=== PATIENT | female | born 1995 ===

== ENCOUNTER 2019-01-05 06:22 | Inpatient (IN) | payer OTHER ==
[2019-01-05] MEDS ORDERED: Sodium Chloride 0.9% 1,000 ML IV ONE (07:03)
[2019-01-05] MEDS ORDERED: Ciprofloxacin 400mg/200ml D5W 400 MG/200 ML BAG IVPB STA (07:10)
[2019-01-05 07:31] LABS: VENOUS BLOOD GAS BASE EXCESS -0.4 mmol/L (0.0-2.0); VENOUS BLOOD GAS PCO2 33 mmHg (40-60); VENOUS BLOOD GAS PO2 49 mm/Hg (30-55); VENOUS BLOOD PH 7.45 (7.32-7.43)
[2019-01-05 07:50] LABS: BASO # 0.1 K/uL (0.0-0.2); BASO % 0.3 % (0.0-2.0); EOS % 0.1 % (0.0-4.0); HEMOGLOBIN 11.6 g/dL (11.0-16.0); LYMPH # 0.5 K/uL (1.0-4.3); LYMPH % 2.5 % (20.0-40.0); MEAN CELL VOLUME 87.4 fL (81.0-99.0); MEAN CORPUSCULAR HEMOGLOBIN 30.3 pg (27.0-31.0); MEAN CORPUSCULAR HGB CONC 34.7 g/dL (33.0-37.0); MEAN PLATELET VOLUME 9.7 fL (7.2-11.7); MONO # 1.3 K/uL (0.0-0.8); MONO % 6.6 % (0.0-10.0); NEUT # 18.5 K/uL (1.8-7.0); NEUT % 90.5 % (50.0-75.0); PLATELET COUNT 148 K/uL (130-400); RBC 3.84 Mil/uL (3.80-5.20); RED CELL DISTRIBUTION WIDTH 13.2 % (11.5-14.5); WHITE BLOOD COUNT 20.4 K/uL (4.8-10.8)
[2019-01-05 07:57] LABS: HCG,QUALITATIVE URINE NEGATIVE (NEGATIVE)
[2019-01-05 08:00] LABS: SQUAMOUS EPITHIAL 13 /hpf (0-5); URINE BACTERIA OCC (<OCC); URINE BILIRUBIN NEGATIVE (NEGATIVE); URINE BLOOD 1+ (NEGATIVE); URINE CLARITY Hazy (Clear); URINE COLOR Yellow (YELLOW); URINE GLUCOSE (UA) 1+ mg/dL (Normal); URINE LEUKOCYTE ESTERASE 3+ Leu/uL (Negative); URINE PROTEIN 2+ mg/dL (NEGATIVE); URINE UROBILINOGEN NORMAL mg/dL (0.2-1.0); WBC CLUMPS FEW /hpf
[2019-01-05 08:04] LABS: ALB/GLOB RATIO 1.3 (1.0-2.1); ALBUMIN 3.9 g/dL (3.5-5.0); ALT/SGPT 56 U/L (9-52); AST/SGOT 39 U/L (14-36); BLOOD UREA NITROGEN 8 mg/dL (7-17); CALCIUM 8.5 mg/dl (8.6-10.4); GFR NON-AFRICAN AMERICAN > 60
[2019-01-05] MEDS ORDERED: Ciprofloxacin 400mg/200ml D5W 400 MG/200 ML BAG IVPB ONE (08:25)
[2019-01-05 08:45] LABS: BANDS 2 % (0-2); LYMPHOCYTE 1 % (20-40); MONOCYTE 3 % (0-10); NEUTROPHIL 94 % (50-75); PLATELET ESTIMATE NORMAL (NORMAL); TOTAL CELLS COUNTED 100
--- NOTE | 2019-01-05 09:07 | C.PDOC ---
History Of Present Illness 23 y/o female,with no significant PMhx, presents to the ER complaining of fever,right flank pain, and dysuria which have been present for the past 2 days. Patient states that the right flank pain radiates to the pelvic area. Patient reports that she took Tylenol at home. However, patient has Tmax 102.6 in ER. Denies having headache,dizziness,CP,SOB, nausea, and vomiting. Time Seen by Provider: 01/05/19 07:02 Chief Complaint (Nursing): Fever History Per: Patient History/Exam Limitations: no limitations Onset/Duration Of Symptoms: Days Current Symptoms Are (Timing): Still Present Severity: Moderate Past Medical History Reviewed: Historical Data, Nursing Documentation, Vital Signs Vital Signs: Last Vital Signs Temp 99.9 F H 01/05/19 08:18 Pulse 105 H 01/05/19 08:18 Resp 22 01/05/19 08:18 BP 100/61 01/05/19 08:18 Pulse Ox 97 01/05/19 08:18 Primary Care Provider: FAMILY PROVIDER,NO - Medical History PMH: No Chronic Diseases Surgical History: No Surg Hx Family History: States: No Known Family Hx - Social History Hx Alcohol Use: No Hx Substance Use: No - Immunization History Hx Tetanus Toxoid Vaccination: No Hx Influenza Vaccination: No Hx Pneumococcal Vaccination: No Review Of Systems Except As Marked, All Systems Reviewed And Found Negative. Constitutional: Positive for: Fever, Chills Gastrointestinal: Negative for: Nausea, Vomiting Genitourinary: Positive for: Dysuria. Negative for: Hematuria Musculoskeletal: Positive for: Back Pain Neurological: Negative for: Headache Physical Exam - Physical Exam Appears: Non-toxic, Other (ill) Skin: Normal Color, Warm, Dry Head: Atraumatic, Normacephalic Eye(s): bilateral: Normal Inspection Ear(s): Bilateral: Normal Nose: Normal Oral Mucosa: Moist Throat: Normal, No Erythema, No Exudate Neck: Supple Chest: Symmetrical Cardiovascular: Rhythm Regular Respiratory: Normal Breath Sounds, No Rales, No Rhonchi, No Wheezing Gastrointestinal/Abdominal: Soft, Tenderness (lower abdominal tenderness), No Guarding, No Rebound Back: CVA Tenderness (right sided CVA tenderness) Neurological/Psych: Oriented x3, Normal Speech ED Course And Treatment - Laboratory Results Result Diagrams: 01/08/19 07:15 01/08/19 07:15 Lab Results: pO2 49 mm/Hg (30-55) 01/05/19 07:25 VBG pH 7.45 (7.32-7.43) H 01/05/19 07:25 VBG pCO2 33 mmHg (40-60) L 01/05/19 07:25 VBG HCO3 24.3 mmol/L 01/05/19 07:25 VBG Total CO2 23.9 mmol/L (22-28) 01/05/19 07:25 VBG O2 Sat (Calc) 89.3 % (40-65) H 01/05/19 07:25 VBG Base Excess -0.4 mmol/L (0.0-2.0) L 01/05/19 07:25 VBG Potassium 2.8 mmol/L (3.6-5.2) L 01/05/19 07:25 Sodium 135.0 mmol/l (132-148) 01/05/19 07:25 Chloride 102.0 mmol/L (98-107) 01/05/19 07:25 Glucose 106 mg/dl (65-105) H 01/05/19 07:25 Lactate 1.1 mmol/L (0.7-2.1) 01/05/19 07:25 Total Bilirubin 1.2 mg/dL (0.2-1.3) 01/05/19 07:46 AST 39 U/L (14-36) H 01/05/19 07:46 ALT 56 U/L (9-52) H 01/05/19 07:46 Alkaline Phosphatase 98 U/L (38-126) 01/05/19 07:46 Total Protein 6.9 g/dL (6.3-8.3) 01/05/19 07:46 Albumin 3.9 g/dL (3.5-5.0) 01/05/19 07:46 Globulin 3.0 gm/dL (2.2-3.9) 01/05/19 07:46 Albumin/Globulin Ratio 1.3 (1.0-2.1) 01/05/19 07:46 Urine Color Yellow (YELLOW) 01/05/19 07:46 Urine Clarity Hazy (Clear) 01/05/19 07:46 Urine pH 5.0 (5.0-8.0) 01/05/19 07:46 Ur Specific [place] 1.020 (1.003-1.030) 01/05/19 07:46 Urine Protein 2+ mg/dL (NEGATIVE) H 01/05/19 07:46 Urine Glucose (UA) 1+ mg/dL (Normal) 01/05/19 07:46 Urine Ketones 1+ mg/dL (NEGATIVE) H 01/05/19 07:46 Urine Blood 1+ (NEGATIVE) H 01/05/19 07:46 Urine Nitrate Negative (NEGATIVE) 01/05/19 07:46 Urine Bilirubin Negative (NEGATIVE) 01/05/19 07:46 Urine Urobilinogen Normal mg/dL (0.2-1.0) 01/05/19 07:46 Ur Leukocyte Esterase 3+ [place]/uL (Negative) H 01/05/19 07:46 Urine WBC (Auto) 117 /hpf (0-5) H 01/05/19 07:46 Urine RBC (Auto) 9 /hpf (0-3) H 01/05/19 07:46 Urine WBC Clumps (Auto) Few /hpf (NONE) H 01/05/19 07:46 Ur Squamous Epith Cells 13 /hpf (0-5) H 01/05/19 07:46 Urine Bacteria Occ (<OCC) H 01/05/19 07:46 Urine HCG, Qual Negative (NEGATIVE) 01/05/19 07:46 Urine HCG, Qual Negative (NEGATIVE) 01/05/19 07:46 O2 Sat by Pulse Oximetry: 97 (RA) Pulse Ox Interpretation: Normal Medical Decision Making Medical Decision Making: Plan: --Labs --UA --IV Fluids --Cipro IV --Motrin PO --Rocephin IV --Tylenol PO Updates: Pt is febrile, mildly tachycardic and hypotensive. Pt meets SIRS criteria for possible sepsis. Lactate is 1.1. Remaining labs pending. Disposition Discussed With Dr.: Ger Mathis Counseled Patient/Family Regarding: Studies Performed, Diagnosis - Disposition Disposition: HOSPITALIZED Disposition Time: 12:50 Condition: GOOD - Clinical Impression Clinical Impression: Fever, Pyelonephritis - Scribe Statement The provider has reviewed the documentation as recorded by the Lucioibe Marleni Brewer Provider Attestation: All medical record entries made by the Scribe were at my direction and personally dictated by me. I have reviewed the chart and agree that the record accurately reflects my personal performance of the history, physical exam, medical decision making, and the department course for this patient. I have also personally directed, reviewed, and agree with the discharge instructions and disposition. Decision To Admit - Pt Status Changed To: Hospital Disposition Of: Inpatient - Admit Certification Admit to Inpatient:: After my assessment, the patient will require hospitalization for at least two midnights. This is because of the severity of symptoms shown, intensity of services needed, and/or the medical risk in this patient being treated as an outpatient. - InPatient: Physician Admission Certification:: pyelonephritis, early signs of sepsis - . Bed Request Type: Regular Patient Diagnosis: Fever, Pyelonephritis
[2019-01-05 10:08] LABS: VENOUS BLOOD GAS BASE EXCESS -3.9 mmol/L (0.0-2.0); VENOUS BLOOD GAS PCO2 36 mmHg (40-60); VENOUS BLOOD GAS PO2 39 mm/Hg (30-55); VENOUS BLOOD PH 7.37 (7.32-7.43)
[2019-01-05] MEDS ORDERED: Potassium Chloride 20 mEq ER Tab PO STA (10:23)
[2019-01-05] MEDS ORDERED: Potassium Chloride 20 mEq ER Tab PO ONE ×2 (10:33→13:45)
--- NOTE | 2019-01-05 12:19 | CT ---
Date of service: 01/05/2019 PROCEDURE: CT Abdomen and Pelvis without intravenous contrast HISTORY: pyelo vs obstructed stone COMPARISON: Not available TECHNIQUE: Without contrast.. Contrast dose: 0 Radiation dose: Total exam DLP = 366.81 mGy-cm. This CT exam was performed using one or more of the following dose reduction techniques: Automated exposure control, adjustment of the mA and/or kV according to patient size, and/or use of iterative reconstruction technique. FINDINGS: LOWER THORAX: Bilateral minimal lower lobe linear scar/atelectasis. LIVER: Unremarkable. No gross lesion or ductal dilatation. GALLBLADDER AND BILE DUCTS: Unremarkable. PANCREAS: Unremarkable. No gross lesion or ductal dilatation. SPLEEN: Unremarkable. ADRENALS: Unremarkable. No mass. KIDNEYS AND URETERS: Minimal right hydronephrosis with effacement of renal sinus fat. Mild right hydroureter. No renal mass or calculus. No perinephric fluid. Mild right periureteric stranding. No ureteral calculus. These findings may be the result of recent passage of a ureteral calculus but this cannot be determined with certainty on the basis of this examination. Unremarkable left kidney. Cannot evaluate for pyelonephritis in the absence of intravenous contrast administration. VASCULATURE: Unremarkable. No aortic aneurysm. No aortic atherosclerotic calcification or mural plaque present. BOWEL: Unremarkable. No obstruction. No gross mural thickening. APPENDIX: Not identified. No secondary findings to suggest acute appendicitis. PERITONEUM: Unremarkable. No free fluid. No free air. LYMPH NODES: Unremarkable. No enlarged lymph nodes. BLADDER: Unremarkable. REPRODUCTIVE: Unremarkable uterus. BONES: No acute fracture. OTHER FINDINGS: None. IMPRESSION: Mild right hydronephrosis and hydroureter without evidence of obstructing calculus. Possible recent passage of a urinary calculus. Unable to evaluate for pyelonephritis in the absence of intravenous contrast administration. No other significant abnormality is identified.
--- NOTE | 2019-01-05 13:02 | CP.PCM.HP ---
<Rama Jean Baptiste - Last Filed: 01/05/19 14:29> History of Present Illness - History of Present Illness History of Present Illness: 23 year old female with no past medical history presents to the ER for fever and right sided back pain. She states her symptoms started on Thursday evening when she got home from work. She states she took Tylenol which would help and then the fever would return. She stated she had a lot of pain today and vomited x2. She has never had any of these symptoms before. She also complains of pelvic pain after she has completed urinating. Patient denies chills, diarrhea, dysuria, hematuria, headache, shortness of breath or chest pain. PMD:denies Past Medical History: denies Past Surgical History: denies Family History: denies Medications: denies Allergies: NKDA Social History: works as a automotive service cashier, denies alcohol, smoking or illicit drug use Present on Admission - Present on Admission Any Indicators Present on Admission: No Review of Systems - Constitutional Constitutional: Fever. absent: Chills, Headache - Cardiovascular Cardiovascular: absent: Chest Pain, Dyspnea - Respiratory Respiratory: absent: Cough, Dyspnea - Gastrointestinal Gastrointestinal: Nausea, Vomiting. absent: Constipation, Diarrhea - Genitourinary Genitourinary: Flank Pain. absent: Dysuria, Hematuria, Urinary Frequency - Musculoskeletal Musculoskeletal: Back Pain - Neurological Neurological: absent: Dizziness, Headaches Past Patient History - Past Social History Smoking Status: Never Smoked - PSYCHIATRIC Hx Substance Use: No - ANESTHESIA Hx Anesthesia: No Meds Allergies/Adverse Reactions: Allergies Allergy/AdvReac Type Severity Reaction Status Date / Time No Known Allergies Allergy Verified 01/05/19 06:38 Physical Exam - Constitutional Appears: No Acute Distress - Head Exam Head Exam: ATRAUMATIC, NORMAL INSPECTION - Eye Exam Eye Exam: EOMI, Normal appearance, PERRL Pupil Exam: NORMAL ACCOMODATION - ENT Exam ENT Exam: Mucous Membranes Dry - Respiratory Exam Respiratory Exam: Clear to Auscultation Bilateral, NORMAL BREATHING PATTERN - Cardiovascular Exam Cardiovascular Exam: REGULAR RHYTHM, +S1, +S2 - GI/Abdominal Exam GI & Abdominal Exam: Normal Bowel Sounds, Soft. absent: Tenderness - Back Exam Back exam: CVA tenderness (R). absent: CVA tenderness (L) - Neurological Exam Neurological exam: Alert, Oriented x3 - Psychiatric Exam Psychiatric exam: Normal Affect - Skin Skin Exam: Dry, Normal Color Results - Vital Signs Recent Vital Signs: Last Vital Signs Temp 98.6 F 01/05/19 11:47 Pulse 92 H 01/05/19 11:47 Resp 18 01/05/19 11:47 BP 96/63 L 01/05/19 11:47 Pulse Ox 97 01/05/19 12:51 - Labs Result Diagrams: 01/05/19 07:46 01/05/19 07:46 Labs: Laboratory Results - last 24 hr 01/05/19 01/05/19 01/05/19 07:25 07:46 07:46 WBC 20.4 H RBC 3.84 Hgb 11.6 Hct 33.5 L MCV 87.4 MCH 30.3 MCHC 34.7 RDW 13.2 Plt Count 148 MPV 9.7 Neut % (Auto) 90.5 H Lymph % (Auto) 2.5 L [place] % (Auto) 6.6 Eos % (Auto) 0.1 Baso % (Auto) 0.3 Neut # (Auto) 18.5 H Lymph # (Auto) 0.5 L [place] # (Auto) 1.3 H Eos # (Auto) 0.0 Baso # (Auto) 0.1 Neutrophils % (Manual) 94 H Band Neutrophils % 2 Lymphocytes % (Manual) 1 L Monocytes % (Manual) 3 Platelet Estimate Normal RBC Morphology Normal pO2 49 VBG pH 7.45 H VBG pCO2 33 L VBG HCO3 24.3 VBG Total CO2 23.9 VBG O2 Sat (Calc) 89.3 H VBG Base Excess -0.4 L VBG Potassium 2.8 L Sodium 135.0 Chloride 102.0 Glucose 106 H Lactate 1.1 Potassium Carbon Dioxide Anion Gap BUN Creatinine Est GFR ( Amer) Est GFR (Non-Af Amer) Random Glucose Calcium Total Bilirubin AST ALT Alkaline Phosphatase Total Protein Albumin Globulin Albumin/Globulin Ratio Venous Blood Potassium 2.8 L Urine Color Yellow Urine Clarity Hazy Urine pH 5.0 Ur Specific [place] 1.020 Urine Protein 2+ H Urine Glucose (UA) 1+ Urine Ketones 1+ H Urine Blood 1+ H Urine Nitrate Negative Urine Bilirubin Negative Urine Urobilinogen Normal Ur Leukocyte Esterase 3+ H Urine WBC (Auto) 117 H Urine RBC (Auto) 9 H Urine WBC Clumps (Auto) Few H Ur Squamous Epith Cells 13 H Urine Bacteria Occ H Urine HCG, Qual Negative 01/05/19 01/05/19 07:46 09:59 WBC RBC Hgb Hct MCV MCH MCHC RDW Plt Count MPV Neut % (Auto) Lymph % (Auto) [place] % (Auto) Eos % (Auto) Baso % (Auto) Neut # (Auto) Lymph # (Auto) [place] # (Auto) Eos # (Auto) Baso # (Auto) Neutrophils % (Manual) Band Neutrophils % Lymphocytes % (Manual) Monocytes % (Manual) Platelet Estimate RBC Morphology pO2 39 VBG pH 7.37 VBG pCO2 36 L VBG HCO3 21.2 VBG Total CO2 21.9 L VBG O2 Sat (Calc) 81.8 H VBG Base Excess -3.9 L VBG Potassium 2.6 L Sodium 135 134.0 Chloride 100 105.0 Glucose 348 H Lactate 1.2 Potassium 2.9 L Carbon Dioxide 23 Anion Gap 15 BUN 8 Creatinine 0.5 L Est GFR ( Amer) > 60 Est GFR (Non-Af Amer) > 60 Random Glucose 107 H Calcium 8.5 L Total Bilirubin 1.2 AST 39 H ALT 56 H Alkaline Phosphatase 98 Total Protein 6.9 Albumin 3.9 Globulin 3.0 Albumin/Globulin Ratio 1.3 Venous Blood Potassium 2.6 L Urine Color Urine Clarity Urine pH Ur Specific [place] Urine Protein Urine Glucose (UA) Urine Ketones Urine Blood Urine Nitrate Urine Bilirubin Urine Urobilinogen Ur Leukocyte Esterase Urine WBC (Auto) Urine RBC (Auto) Urine WBC Clumps (Auto) Ur Squamous Epith Cells Urine Bacteria Urine HCG, Qual Assessment & Plan - Assessment and Plan (Free Text) Assessment: Pyelonephritis - SIRS: Febrile; WBC 20.4; tachycardia on admission - UA: + WBC; + leukocyte esterase - Urine test Negative - f/u urine culture; f/u blood culture - Abdominal/Pelvis CT: Mild right hydronephrosis and hydroureter without evidence of obstructing calculus. Possible recent passage of a urinary calculus. Unable to evaluate for pyelonephritis in the absence of intravenous contrast administration. No other significant abnormality is identified. - Medications * Tylenol 650mg q6prn for Fever * Zofran 4mg IV prn for nausea * Vancomycin 1gm q12h * Primaxin 500mg q6h Hypokalemia - K 2.9 - Kdur 60meq once - f/u bmp - Continue to monitor Prophylaxis - SCDs; patient ambulates - GI: prophylaxis not indicated - Florastor 250mg po daily Case discussed with Dr. Delfina Jean Baptiste PGY-2 <Ger Mathis - Last Filed: 01/05/19 17:43> Results - Vital Signs Recent Vital Signs: Last Vital Signs Temp 101.1 F H 01/05/19 16:46 Pulse 114 H 01/05/19 15:13 Resp 20 01/05/19 15:50 BP 102/68 01/05/19 15:13 Pulse Ox 98 01/05/19 15:13 - Labs Result Diagrams: 01/05/19 07:46 01/05/19 17:03 Labs: Laboratory Results - last 24 hr 01/05/19 01/05/19 01/05/19 07:25 07:46 07:46 WBC 20.4 H RBC 3.84 Hgb 11.6 Hct 33.5 L MCV 87.4 MCH 30.3 MCHC 34.7 RDW 13.2 Plt Count 148 MPV 9.7 Neut % (Auto) 90.5 H Lymph % (Auto) 2.5 L [place] % (Auto) 6.6 Eos % (Auto) 0.1 Baso % (Auto) 0.3 Neut # (Auto) 18.5 H Lymph # (Auto) 0.5 L [place] # (Auto) 1.3 H Eos # (Auto) 0.0 Baso # (Auto) 0.1 Neutrophils % (Manual) 94 H Band Neutrophils % 2 Lymphocytes % (Manual) 1 L Monocytes % (Manual) 3 Platelet Estimate Normal RBC Morphology Normal pO2 49 VBG pH 7.45 H VBG pCO2 33 L VBG HCO3 24.3 VBG Total CO2 23.9 VBG O2 Sat (Calc) 89.3 H VBG Base Excess -0.4 L VBG Potassium 2.8 L Sodium 135.0 Chloride 102.0 Glucose 106 H Lactate 1.1 Potassium Carbon Dioxide Anion Gap BUN Creatinine Est GFR ( Amer) Est GFR (Non-Af Amer) Random Glucose Calcium Total Bilirubin AST ALT Alkaline Phosphatase Total Protein Albumin Globulin Albumin/Globulin Ratio Venous Blood Potassium 2.8 L Urine Color Yellow Urine Clarity Hazy Urine pH 5.0 Ur Specific [place] 1.020 Urine Protein 2+ H Urine Glucose (UA) 1+ Urine Ketones 1+ H Urine Blood 1+ H Urine Nitrate Negative Urine Bilirubin Negative Urine Urobilinogen Normal Ur Leukocyte Esterase 3+ H Urine WBC (Auto) 117 H Urine RBC (Auto) 9 H Urine WBC Clumps (Auto) Few H Ur Squamous Epith Cells 13 H Urine Bacteria Occ H Urine HCG, Qual Negative 01/05/19 01/05/19 01/05/19 07:46 09:59 17:03 WBC RBC Hgb Hct MCV MCH MCHC RDW Plt Count MPV Neut % (Auto) Lymph % (Auto) [place] % (Auto) Eos % (Auto) Baso % (Auto) Neut # (Auto) Lymph # (Auto) [place] # (Auto) Eos # (Auto) Baso # (Auto) Neutrophils % (Manual) Band Neutrophils % Lymphocytes % (Manual) Monocytes % (Manual) Platelet Estimate RBC Morphology pO2 39 VBG pH 7.37 VBG pCO2 36 L VBG HCO3 21.2 VBG Total CO2 21.9 L VBG O2 Sat (Calc) 81.8 H VBG Base Excess -3.9 L VBG Potassium 2.6 L Sodium 135 134.0 136 Chloride 100 105.0 103 Glucose 348 H Lactate 1.2 Potassium 2.9 L 3.4 L Carbon Dioxide 23 25 Anion Gap 15 12 BUN 8 6 L Creatinine 0.5 L 0.5 L Est GFR ( Amer) > 60 > 60 Est GFR (Non-Af Amer) > 60 > 60 Random Glucose 107 H 118 H Calcium 8.5 L 8.5 L Total Bilirubin 1.2 AST 39 H ALT 56 H Alkaline Phosphatase 98 Total Protein 6.9 Albumin 3.9 Globulin 3.0 Albumin/Globulin Ratio 1.3 Venous Blood Potassium 2.6 L Urine Color Urine Clarity Urine pH Ur Specific [place] Urine Protein Urine Glucose (UA) Urine Ketones Urine Blood Urine Nitrate Urine Bilirubin Urine Urobilinogen Ur Leukocyte Esterase Urine WBC (Auto) Urine RBC (Auto) Urine WBC Clumps (Auto) Ur Squamous Epith Cells Urine Bacteria Urine HCG, Qual Attending/Attestation - Attestation I have personally seen and examined this patient.: Yes I have fully participated in the care of the patient.: Yes I have reviewed all pertinent clinical information: Yes Notes (Text): 01/05/19 17:40 Medical attending: Patient was seen and examined by me, agree with the above note by the resident The patient has been having fevers, flank pain, and also dysuria. The UA was suggesting infection as well. CT scan was done without contrast but suggested stranding. Replace the K as well Ger Mathis
[2019-01-05] MEDS: Sodium Chloride 0.9% 1,000 ML IV SCH ×2 (14:42→21:44)
[2019-01-05] MEDS: Vancomycin 1 gm/NS 200 ml 1 GM/200 ML BAG IVPB SCH (16:47)
[2019-01-05 17:35] LABS: BLOOD UREA NITROGEN 6 mg/dL (7-17); CALCIUM 8.5 mg/dl (8.6-10.4); GFR NON-AFRICAN AMERICAN > 60
[2019-01-05] MEDS ORDERED: Pneumococcal 23-Valent Vaccine IM ONE (18:38)
[2019-01-06] MEDS: Sodium Chloride 0.9% 1,000 ML IV SCH ×3 (03:20→17:09)
[2019-01-06] MEDS: Vancomycin 1 gm/NS 200 ml 1 GM/200 ML BAG IVPB SCH ×2 (04:00→16:08)
--- NOTE | 2019-01-06 07:16 | CP.PCM.PN ---
<Willem Bustillo L - Last Filed: 01/06/19 16:33> Subjective - Date & Time of Evaluation Date of Evaluation: 01/06/19 Time of Evaluation: 07:14 - Subjective Subjective: Resident Progress Note for Hospitalist Service Patient examined at bedside. Patient reports improvement in her flank pain. Had Tmax overnight of 103. Denies chest pain, shortness of breath, abdominal pain, diarrhea, dysuria. Objective - Vital Signs/Intake and Output Vital Signs (last 24 hours): Temp Pulse Resp BP Pulse Ox 98.4 F 95 H 20 93/60 L 96 01/06/19 04:00 01/06/19 04:00 01/06/19 04:00 01/06/19 04:00 01/06/19 04:00 - Medications Medications: Current Medications Acetaminophen (Tylenol 325mg Tab) 650 mg PO Q6 PRN PRN Reason: Fever >100.4 F Last Admin: 01/06/19 00:59 Dose: 650 mg Imipenem/Cilastatin Sodium 500 (mg/ Sodium Chloride) 100 mls @ 100 mls/hr IVPB Q6H [facility]; Protocol Last Admin: 01/06/19 01:50 Dose: 100 mls/hr Sodium Chloride (Sodium Chloride 0.9%) 1,000 mls @ 150 mls/hr IV .Q6H40M [facility] Last Admin: 01/06/19 03:20 Dose: Not Given Vancomycin/Sodium Chloride (Vancomycin 1 Gm/Ns 200 Ml) 1 gm in 200 mls @ 133 mls/hr IVPB Q12H [facility]; Protocol Stop: 01/10/19 16:01 Last Admin: 01/06/19 04:00 Dose: 133 mls/hr Ondansetron HCl (Zofran Inj) 4 mg IVP Q6 PRN PRN Reason: Nausea/Vomiting Saccharomyces Boulardii (Florastor) 250 mg PO DAILY [facility] - Labs Labs: 01/05/19 07:46 01/05/19 17:03 - Constitutional Appears: No Acute Distress - Head Exam Head Exam: ATRAUMATIC, NORMAL INSPECTION - Eye Exam Eye Exam: EOMI, Normal appearance, PERRL - ENT Exam ENT Exam: Mucous Membranes Dry - Respiratory Exam Respiratory Exam: Clear to Auscultation Bilateral, NORMAL BREATHING PATTERN - Cardiovascular Exam Cardiovascular Exam: REGULAR RHYTHM, +S1, +S2 - GI/Abdominal Exam GI & Abdominal Exam: Normal Bowel Sounds, Soft. absent: Tenderness - Back Exam Back exam: absent: CVA tenderness (L), CVA tenderness (R) - Neurological Exam Neurological exam: Alert, Awake, Oriented x3 - Psychiatric Exam Psychiatric exam: Normal Affect - Skin Skin Exam: Dry, Normal Color Assessment and Plan - Assessment and Plan (Free Text) Plan: Pyelonephritis - SIRS: Febrile; WBC 20.4; tachycardia on admission - leukocytosis trending down - procal elevated - UA: + WBC; + leukocyte esterase - Urine test negative - blood culture and urine culture gram negative denys preliminary - Abdominal/Pelvis CT: Mild right hydronephrosis and hydroureter without evidence of obstructing calculus. Possible recent passage of a urinary calculus. Unable to evaluate for pyelonephritis in the absence of intravenous contrast administration. No other significant abnormality is identified. - Medications * Tylenol 650mg q6 for Fever * Zofran 4mg IV prn for nausea * Vancomycin 1gm q12h * Primaxin 500mg q6h Hypokalemia - monitor and replete Prophylaxis - SCDs; patient ambulates - GI: prophylaxis not indicated - Florastor 250mg po daily Case reviewed with Dr. Delfina Bustillo PGY-1 <Ger Mathis H - Last Filed: 01/06/19 17:08> Objective - Vital Signs/Intake and Output Vital Signs (last 24 hours): Temp Pulse Resp BP Pulse Ox 100.7 F H 105 H 18 111/61 95 01/06/19 15:11 01/06/19 15:00 01/06/19 15:00 01/06/19 15:00 01/06/19 15:00 - Medications Medications: Current Medications Acetaminophen (Tylenol 325mg Tab) 650 mg PO Q6 [facility] Imipenem/Cilastatin Sodium 500 (mg/ Sodium Chloride) 100 mls @ 100 mls/hr IVPB Q6H [facility]; Protocol Last Admin: 01/06/19 14:30 Dose: 100 mls/hr Sodium Chloride (Sodium Chloride 0.9%) 1,000 mls @ 150 mls/hr IV .Q6H40M [facility] Last Admin: 01/06/19 11:15 Dose: 150 mls/hr Vancomycin/Sodium Chloride (Vancomycin 1 Gm/Ns 200 Ml) 1 gm in 200 mls @ 133 mls/hr IVPB Q12H [facility]; Protocol Stop: 01/10/19 16:01 Last Admin: 01/06/19 04:00 Dose: 133 mls/hr Ondansetron HCl (Zofran Inj) 4 mg IVP Q6 PRN PRN Reason: Nausea/Vomiting Saccharomyces Boulardii (Florastor) 250 mg PO DAILY [facility] Last Admin: 01/06/19 09:33 Dose: 250 mg - Labs Labs: 01/06/19 07:03 01/06/19 07:03 Attending/Attestation - Attestation I have personally seen and examined this patient.: Yes I have fully participated in the care of the patient.: Yes I have reviewed all pertinent clinical information, including history, physical exam and plan: Yes Notes (Text): 01/06/19 17:07 Medical attending: Patient was seen and examined by me. Agree with the above note by the resident The WBC is decreased to 12. We are pending the finialization of the blood culture. She currently remains on IV abx Vancomycin as well as IV Primaxin Ger Mathis
[2019-01-06 07:24] LABS: BASO % 0.3 % (0.0-2.0); EOS % 0.3 % (0.0-4.0); LYMPH # 1.1 K/uL (1.0-4.3); LYMPH % 8.8 % (20.0-40.0); MEAN CELL VOLUME 88.9 fL (81.0-99.0); MEAN CORPUSCULAR HEMOGLOBIN 30.2 pg (27.0-31.0); MEAN PLATELET VOLUME 10.2 fL (7.2-11.7); MONO # 1.7 K/uL (0.0-0.8); MONO % 14.2 % (0.0-10.0); NEUT # 9.2 K/uL (1.8-7.0); NEUT % 76.4 % (50.0-75.0); PLATELET COUNT 151 K/uL (130-400); RBC 3.98 Mil/uL (3.80-5.20); RED CELL DISTRIBUTION WIDTH 13.3 % (11.5-14.5)
[2019-01-06 07:40] LABS: ALB/GLOB RATIO 1.4 (1.0-2.1); ALBUMIN 3.6 g/dL (3.5-5.0); ALT/SGPT 40 U/L (9-52); AST/SGOT 26 U/L (14-36); BLOOD UREA NITROGEN 3 mg/dL (7-17); CALCIUM 8.2 mg/dl (8.6-10.4); GFR NON-AFRICAN AMERICAN > 60
[2019-01-06] MEDS ORDERED: Potassium Chloride 20 mEq ER Tab PO ONE (08:15)
[2019-01-06 08:27] LABS: LYMPHOCYTE 10 % (20-40); MONOCYTE 3 % (0-10); NEUTROPHIL 87 % (50-75); TOTAL CELLS COUNTED 100
[2019-01-06 08:28] LABS: PLATELET ESTIMATE NORMAL (NORMAL)
[2019-01-06] MEDS: Saccharomyces Boulardi 250 mg Cap PO SCH (09:33)
[2019-01-07 02:00] VITALS: RESP 20
[2019-01-07] MEDS: Sodium Chloride 0.9% 1,000 ML IV SCH ×2 (04:50→19:29)
[2019-01-07] MEDS: Vancomycin 1 gm/NS 200 ml 1 GM/200 ML BAG IVPB SCH ×2 (05:00→16:22)
[2019-01-07 07:05] LABS: ALB/GLOB RATIO 1.3 (1.0-2.1); ALBUMIN 3.3 g/dL (3.5-5.0); ALT/SGPT 49 U/L (9-52); AST/SGOT 46 U/L (14-36); BLOOD UREA NITROGEN 2 mg/dL (7-17); CALCIUM 8.1 mg/dl (8.6-10.4); GFR NON-AFRICAN AMERICAN > 60
[2019-01-07 07:31] LABS: BASO % 0.7 % (0.0-2.0); EOS % 0.3 % (0.0-4.0); HEMOGLOBIN 11.4 g/dL (11.0-16.0); LYMPH # 1.2 K/uL (1.0-4.3); LYMPH % 18.7 % (20.0-40.0); MEAN CELL VOLUME 88.2 fL (81.0-99.0); MEAN CORPUSCULAR HEMOGLOBIN 30.6 pg (27.0-31.0); MEAN CORPUSCULAR HGB CONC 34.7 g/dL (33.0-37.0); MEAN PLATELET VOLUME 10.4 fL (7.2-11.7); MONO # 0.9 K/uL (0.0-0.8); MONO % 13.8 % (0.0-10.0); NEUT # 4.4 K/uL (1.8-7.0); NEUT % 66.5 % (50.0-75.0); NRBC % 0.1 % (0.0-2.0); RBC 3.73 Mil/uL (3.80-5.20); RED CELL DISTRIBUTION WIDTH 13.1 % (11.5-14.5); WHITE BLOOD COUNT 6.5 K/uL (4.8-10.8)
[2019-01-07] MEDS ORDERED: Potassium Chloride 20 mEq ER Tab PO ONE (09:06)
--- NOTE | 2019-01-07 09:06 | CP.PCM.PN ---
Subjective - Date & Time of Evaluation Date of Evaluation: 01/07/19 Time of Evaluation: 09:05 - Subjective Subjective: Resident Progress Note for Hospitalist Service Patient examined at bedside. Afebrile overnight. Patient reports improvement in flank pain. Denies chills, chest pain, shortness of breath, nausea, vomiting, diarrhea, dysuria. Objective - Vital Signs/Intake and Output Vital Signs (last 24 hours): Temp Pulse Resp BP Pulse Ox 99.4 F 92 H 20 93/58 L 97 01/07/19 07:17 01/07/19 07:17 01/07/19 07:17 01/07/19 07:17 01/07/19 07:17 Intake and Output: 01/07/19 01/07/19 06:59 18:59 Intake Total 2800 Balance 2800 - Medications Medications: Current Medications Acetaminophen (Tylenol 325mg Tab) 650 mg PO Q6 ANDRES Last Admin: 01/07/19 05:05 Dose: 650 mg Imipenem/Cilastatin Sodium 500 (mg/ Sodium Chloride) 100 mls @ 100 mls/hr IVPB Q6H ANDRES; Protocol Last Admin: 01/07/19 03:00 Dose: 100 mls/hr Sodium Chloride (Sodium Chloride 0.9%) 1,000 mls @ 150 mls/hr IV .Q6H40M ANDRES Last Admin: 01/07/19 04:50 Dose: 150 mls/hr Vancomycin/Sodium Chloride (Vancomycin 1 Gm/Ns 200 Ml) 1 gm in 200 mls @ 133 mls/hr IVPB Q12H ANDRES; Protocol Stop: 01/10/19 16:01 Last Admin: 01/07/19 05:00 Dose: 133 mls/hr Ondansetron HCl (Zofran Inj) 4 mg IVP Q6 PRN PRN Reason: Nausea/Vomiting Saccharomyces Boulardii (Florastor) 250 mg PO DAILY ANDRES Last Admin: 01/06/19 09:33 Dose: 250 mg - Labs Labs: 01/07/19 06:31 01/07/19 06:31 - Constitutional Appears: No Acute Distress - Head Exam Head Exam: ATRAUMATIC, NORMAL INSPECTION - Eye Exam Eye Exam: EOMI, Normal appearance, PERRL - ENT Exam ENT Exam: Mucous Membranes Dry - Respiratory Exam Respiratory Exam: Clear to Auscultation Bilateral, NORMAL BREATHING PATTERN - Cardiovascular Exam Cardiovascular Exam: REGULAR RHYTHM, +S1, +S2 - GI/Abdominal Exam GI & Abdominal Exam: Normal Bowel Sounds, Soft. absent: Tenderness - Back Exam Back exam: absent: CVA tenderness (L), CVA tenderness (R) - Neurological Exam Neurological exam: Alert, Awake, Oriented x3 - Psychiatric Exam Psychiatric exam: Normal Affect - Skin Skin Exam: Dry, Normal Color Assessment and Plan - Assessment and Plan (Free Text) Plan: Pyelonephritis - SIRS: Febrile; WBC 20.4; tachycardia on admission - leukocytosis resolved - procal elevated - UA: + WBC; + leukocyte esterase - Urine test negative - blood culture and urine culture gram shows E.Coli - Abdominal/Pelvis CT: Mild right hydronephrosis and hydroureter without evidence of obstructing calculus. Possible recent passage of a urinary calculus. Unable to evaluate for pyelonephritis in the absence of intravenous contrast administration. No other significant abnormality is identified. - Medications * Tylenol 650mg q6 for Fever * Zofran 4mg IV prn for nausea * Vancomycin 1gm q12h * Primaxin 500mg q6h - repeat blood and urine culture Hypokalemia - monitor and replete Prophylaxis - SCDs; patient ambulates - GI: prophylaxis not indicated - Florastor 250mg po daily Dispo: Discharge tomorrow with cipro pending repeat cultures Case reviewed with Dr. Delfina Bustillo PGY-1
[2019-01-07] MEDS: Saccharomyces Boulardi 250 mg Cap PO SCH (09:14)
[2019-01-08] MEDS: Sodium Chloride 0.9% 1,000 ML IV SCH (02:09)
[2019-01-08] MEDS: Vancomycin 1 gm/NS 200 ml 1 GM/200 ML BAG IVPB SCH (04:50)
[2019-01-08 07:46] LABS: BASO % 0.8 % (0.0-2.0); EOS # 0.1 K/uL (0.0-0.7); EOS % 1.4 % (0.0-4.0); HEMOGLOBIN 11.4 g/dL (11.0-16.0); LYMPH # 1.9 K/uL (1.0-4.3); LYMPH % 32.8 % (20.0-40.0); MEAN CELL VOLUME 88.2 fL (81.0-99.0); MEAN CORPUSCULAR HEMOGLOBIN 30.5 pg (27.0-31.0); MEAN CORPUSCULAR HGB CONC 34.6 g/dL (33.0-37.0); MEAN PLATELET VOLUME 10.2 fL (7.2-11.7); MONO # 1.2 K/uL (0.0-0.8); MONO % 20.9 % (0.0-10.0); NEUT # 2.5 K/uL (1.8-7.0); NEUT % 44.1 % (50.0-75.0); NRBC % 0.1 % (0.0-2.0); PLATELET COUNT 165 K/uL (130-400); RBC 3.73 Mil/uL (3.80-5.20); RED CELL DISTRIBUTION WIDTH 13.3 % (11.5-14.5); WHITE BLOOD COUNT 5.7 K/uL (4.8-10.8)
[2019-01-08 08:02] VITALS: BP 95/63; PULSE 65; TEMP 97.5
[2019-01-08 08:19] LABS: ALB/GLOB RATIO 1.2 (1.0-2.1); ALBUMIN 3.2 g/dL (3.5-5.0); ALT/SGPT 83 U/L (9-52); AST/SGOT 71 U/L (14-36); BLOOD UREA NITROGEN < 2 mg/dL (7-17); CALCIUM 8.4 mg/dl (8.6-10.4)
[2019-01-08 08:20] LABS: GFR NON-AFRICAN AMERICAN > 60
[2019-01-08] MEDS ORDERED: Potassium Chloride 20 mEq ER Tab PO ONE (08:32)
--- NOTE | 2019-01-08 09:09 | CP.PCM.DIS ---
Provider - Provider Date of Admission: 01/05/19 12:51 Attending physician: Ger Mathis DO Time Spent in preparation of Discharge (in minutes): 29 Diagnosis - Discharge Diagnosis (1) Pyelonephritis Status: Acute Hospital Course - Lab Results Lab Results: Micro Results 01/05/19 07:15 Blood Blood Culture - Preliminary NO GROWTH AFTER 3 DAYS 01/05/19 07:45 Blood Blood Culture - Final Escherichia Coli 01/05/19 07:45 Blood Gram Stain - Final 01/05/19 10:06 Urine,Clean Catch Urine Culture - Final Escherichia Coli Most Recent Lab Values WBC 5.7 K/uL (4.8-10.8) 01/08/19 07:15 RBC 3.73 Mil/uL (3.80-5.20) L 01/08/19 07:15 Hgb 11.4 g/dL (11.0-16.0) 01/08/19 07:15 Hct 32.9 % (34.0-47.0) L 01/08/19 07:15 MCV 88.2 fL (81.0-99.0) 01/08/19 07:15 MCH 30.5 pg (27.0-31.0) 01/08/19 07:15 MCHC 34.6 g/dL (33.0-37.0) 01/08/19 07:15 RDW 13.3 % (11.5-14.5) 01/08/19 07:15 Plt Count 165 K/uL (130-400) 01/08/19 07:15 MPV 10.2 fL (7.2-11.7) 01/08/19 07:15 Neut % (Auto) 44.1 % (50.0-75.0) L 01/08/19 07:15 Lymph % (Auto) 32.8 % (20.0-40.0) 01/08/19 07:15 [place] % (Auto) 20.9 % (0.0-10.0) H 01/08/19 07:15 Eos % (Auto) 1.4 % (0.0-4.0) 01/08/19 07:15 Baso % (Auto) 0.8 % (0.0-2.0) 01/08/19 07:15 Neut # (Auto) 2.5 K/uL (1.8-7.0) 01/08/19 07:15 Lymph # (Auto) 1.9 K/uL (1.0-4.3) 01/08/19 07:15 [place] # (Auto) 1.2 K/uL (0.0-0.8) H 01/08/19 07:15 Eos # (Auto) 0.1 K/uL (0.0-0.7) 01/08/19 07:15 Baso # (Auto) 0.0 K/uL (0.0-0.2) 01/08/19 07:15 Neutrophils % (Manual) 87 % (50-75) H 01/06/19 07:03 Band Neutrophils % 2 % (0-2) 01/05/19 07:46 Lymphocytes % (Manual) 10 % (20-40) L 01/06/19 07:03 Monocytes % (Manual) 3 % (0-10) 01/06/19 07:03 Platelet Estimate Normal (NORMAL) 01/06/19 07:03 RBC Morphology Normal 01/06/19 07:03 pO2 39 mm/Hg (30-55) 01/05/19 09:59 VBG pH 7.37 (7.32-7.43) 01/05/19 09:59 VBG pCO2 36 mmHg (40-60) L 01/05/19 09:59 VBG HCO3 21.2 mmol/L 01/05/19 09:59 VBG Total CO2 21.9 mmol/L (22-28) L 01/05/19 09:59 VBG O2 Sat (Calc) 81.8 % (40-65) H 01/05/19 09:59 VBG Base Excess -3.9 mmol/L (0.0-2.0) L 01/05/19 09:59 VBG Potassium 2.6 mmol/L (3.6-5.2) L 01/05/19 09:59 Sodium 134.0 mmol/l (132-148) 01/05/19 09:59 Chloride 105.0 mmol/L (98-107) 01/05/19 09:59 Glucose 348 mg/dl (65-105) H 01/05/19 09:59 Lactate 1.2 mmol/L (0.7-2.1) 01/05/19 09:59 Sodium 136 mmol/L (132-148) 01/08/19 07:15 Potassium 3.4 mmol/L (3.6-5.2) L 01/08/19 07:15 Chloride 104 mmol/L (98-107) 01/08/19 07:15 Carbon Dioxide 24 mmol/L (22-30) 01/08/19 07:15 Anion Gap 11 (10-20) 01/08/19 07:15 BUN < 2 mg/dL (7-17) L 01/08/19 07:15 Creatinine 0.5 mg/dL (0.7-1.2) L 01/08/19 07:15 Est GFR ( Amer) > 60 01/08/19 07:15 Est GFR (Non-Af Amer) > 60 01/08/19 07:15 Random Glucose 93 mg/dL (65-105) 01/08/19 07:15 Calcium 8.4 mg/dl (8.6-10.4) L 01/08/19 07:15 Phosphorus 4.1 mg/dL (2.5-4.5) 01/08/19 07:15 Magnesium 1.8 mg/dL (1.6-2.3) 01/08/19 07:15 Total Bilirubin 0.3 mg/dL (0.2-1.3) 01/08/19 07:15 AST 71 U/L (14-36) H D 01/08/19 07:15 ALT 83 U/L (9-52) H D 01/08/19 07:15 Alkaline Phosphatase 97 U/L (38-126) 01/08/19 07:15 Total Protein 6.1 g/dL (6.3-8.3) L 01/08/19 07:15 Albumin 3.2 g/dL (3.5-5.0) L 01/08/19 07:15 Globulin 2.8 gm/dL (2.2-3.9) 01/08/19 07:15 Albumin/Globulin Ratio 1.2 (1.0-2.1) 01/08/19 07:15 Procalcitonin 19.03 NG/ML (0.19-0.49) H 01/05/19 17:03 Venous Blood Potassium 2.6 mmol/L (3.6-5.2) L 01/05/19 09:59 Urine Color Yellow (YELLOW) 01/05/19 07:46 Urine Clarity Hazy (Clear) 01/05/19 07:46 Urine pH 5.0 (5.0-8.0) 01/05/19 07:46 Ur Specific [place] 1.020 (1.003-1.030) 01/05/19 07:46 Urine Protein 2+ mg/dL (NEGATIVE) H 01/05/19 07:46 Urine Glucose (UA) 1+ mg/dL (Normal) 01/05/19 07:46 Urine Ketones 1+ mg/dL (NEGATIVE) H 01/05/19 07:46 Urine Blood 1+ (NEGATIVE) H 01/05/19 07:46 Urine Nitrate Negative (NEGATIVE) 01/05/19 07:46 Urine Bilirubin Negative (NEGATIVE) 01/05/19 07:46 Urine Urobilinogen Normal mg/dL (0.2-1.0) 01/05/19 07:46 Ur Leukocyte Esterase 3+ [place]/uL (Negative) H 01/05/19 07:46 Urine WBC (Auto) 117 /hpf (0-5) H 01/05/19 07:46 Urine RBC (Auto) 9 /hpf (0-3) H 01/05/19 07:46 Urine WBC Clumps (Auto) Few /hpf (NONE) H 01/05/19 07:46 Ur Squamous Epith Cells 13 /hpf (0-5) H 01/05/19 07:46 Urine Bacteria Occ (<OCC) H 01/05/19 07:46 Urine HCG, Qual Negative (NEGATIVE) 01/05/19 07:46 - Hospital Course Hospital Course: This is a 23 year old female with no prior medical history who came on 01/05 with right flank pain and fever. She was at work when the pain became so bad when she got home that she had to come to the hospital. There was also reports of dysuria as well. In the ER she had lab work done which showed she had an elevated WBC 20 and a large Left shift. She also had fever of of 102 as well. She initially was placed on Vancomycin and Primaxin IV abx. There were positive cultures for E coli and the ARMIN on the E coli showed good sensitivity to many oral abx including cipro with an ARMIN of < 0.25 While here her WBC decreased and fevers went away. On 01/08 she has had a normal WBC for two days now, afebrile and no longer flank pain. She is actively walking around [employer] without any problems. Bathroom ok, no dysuria now. RX: Cipro 500mg PO BID Disp # 14 Discharge Exam - Head Exam Head Exam: ATRAUMATIC, NORMAL INSPECTION - Eye Exam Eye Exam: EOMI, Normal appearance - Respiratory Exam Respiratory Exam: Clear to PA & Lateral, NORMAL BREATHING PATTERN, UNREMARKABLE - Cardiovascular Exam Cardiovascular Exam: REGULAR RHYTHM - GI/Abdominal Exam GI & Abdominal Exam: Normal Bowel Sounds, Unremarkable. absent: Distended, Firm, Guarding - Back Exam Back exam: absent: CVA tenderness (R) Additional comments: No more flank tenderness - Neurological Exam Neurological exam: Alert, CN II-XII Intact, Oriented x3 - Psychiatric Exam Psychiatric exam: Normal Affect, Normal Mood - Skin Skin Exam: Normal Color, Warm Discharge Plan - Discharge Medications Prescriptions: Ciprofloxacin HCl [Cipro] 500 mg PO BID #14 tablet - Follow Up Plan Condition: GOOD Disposition: HOME/ ROUTINE Instructions: Urinary Tract Infection in Women (DC), Urinary Tract Infection in Men (DC), Dysuria (GEN)
[2019-01-08] MEDS: Saccharomyces Boulardi 250 mg Cap PO SCH (09:21)
[2019-01-08 11:06] LABS: LYMPHOCYTE 26 % (20-40); MONOCYTE 21 % (0-10); PLATELET ESTIMATE NORMAL (NORMAL); TOTAL CELLS COUNTED 100
[2019-01-08 11:07] LABS: ANISOCYTOSIS SLIGHT; LARGE PLATELETS PRESENT; NEUTROPHIL 51 % (50-75); POLYCHROMIC SLIGHT
[2019-01-08 11:08] LABS: BANDS 2 % (0-2)
[2019-01-10 18:44] VITALS: O2SAT 97
== END 2019-01-08 10:57 | disposition home or self-care (01) | DRG 463 ==
LOC: C.ER 06:22 → C.9E 12:51 → C.6T 13:46
PROVIDERS: ADMIT Hospitalist; ATTEND Hospitalist
DX: N13.6 Pyonephrosis (principal); R65.10 Systemic inflammatory response syndrome (SIRS) of non-infectious origin without acute organ dysfunction; Z87.442 Personal history of urinary calculi